=== PATIENT | male | born 2000 | race Hispanic/Latino ===

== ENCOUNTER 2022-07-04 08:27 | Emergency (ER) | payer SELFPAY ==
[2022-07-04 08:45] VITALS: BP 122/69; PULSE 85; RESP 16; TEMP 36.7; O2SAT 98; BMI 31.5
--- NOTE | 2022-07-04 09:22 | ED.SKABFB ---
HPI - Skin/Abscess/Foreign Bdy General Chief complaint: Skin/Abscess/Foreign Body Stated complaint: face & LT leg hurting Time Seen by Provider: 07/04/22 09:20 Source: patient and family (mom) Mode of arrival: Ambulatory Limitations: no limitations History of Present Illness HPI narrative: This is a 21-year-old male with history of autism no other known medical issues. Patient has 2 complaints today 1 is a rash on his face just been there for about a month mom states that he was receiving an antifungal it was kind helpful and then got worse again she states he scratches and picks at it a lot. Patient describes it as itchy mildly painful. It has not been resolving. They have not put any antifungal on for the past 4 days. No fevers or chills no swelling of the face sort of patchy cross the hair but also under the chin. Has not been spreading to other body parts. Patient has not had similar issues in the past. Patient also has complaint of right leg pain. Patient does not recall a specific incident that caused pain but he has had pain that radiates from the hip down towards the knee for about a month. It is worse when he gets to sit up from a chair he has pain and sort of feel like it locks when he gets up. Patient's sort of stands on comfortably slightly bent over and then is able start to move better. Mom notes that he tends to hold the right foot sort of out turned which is new. 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 They have tried Advil without any improvement. No warmth, erythema no other skin changes. Patient has not appreciated any swelling. He does not recall any specific traumatic injuries but movement does make it worse. He states it does not radiate farther down. He denies numbness or tingling. No bowel or bladder incontinence. He denies any back pain. Has not had similar in the past. No other daily prescriptions, no prior surgeries. No known drug allergies noted. Patient is visiting for several months but does not actively live in the state he is currently living in [place]. Related Data Previous Rx's Medication Instructions Recorded mupirocin 2 % topical ointment 1 applic topical BID 2 weeks #22 07/04/22 grams Review of Systems Review of Systems ROS Unobtainable: All systems reviewed & are unremarkable except as noted in HPI and below Exam Narrative Exam Narrative: GEN: well nourished, well appearing male, alert and oriented x 3, patient appears to be in mild distress. HEENT: Atraumatic, pupils are equal round reactive to light, extraocular movements are intact, nares are clear, there is no conjunctival pallor. Throat is clear without any exudates, erythema, tonsillar enlargement or uvular deviation, patient has patchy honey-colored crusted lesions on his cheeks particularly on the right underneath the chin and tracking to the left the majority in his facial hair on his ladd. Patient does not have any warmth or erythema, no drainage, no swelling of the face. No oropharyngeal involvement. Thrush not appreciated elsewhere. HEART: Regular rate and rhythm without murmur, clicks, rubs. pulses are equal in bilateral lower extremities LUNGS:Lungs clear to auscultation, no wheezes, rales, crackles, chest moves symmetrically ABD:bowel sounds normal, soft, non-tender, no guarding, rebound, rigidity, no masses noted, no hepatosplenomegaly :No CVA tenderness BACK: No cervical, thoracic or lumbar vertebral point tenderness. Patient has normal range of motion. MSCL: Non-tender, no muscle atrophy, muscles strength 5/5 upper and lower extremities, full range of motion, patient walks with a slightly out turned left lower extremity when he moves from a seated position to standing he is slightly bent over and then continue walk with out-turned leg. Patient has full range of motion of the hip, knee and ankle and foot. 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 He is normal internal external rotation. No swelling of the extremity. 5/5 muscle strength. 2+ pulses. Normal sensation throughout. NEURO:CN 2-12 intact, sensation normal SKIN: Please note skin changes above on the face patient does not have any rash or skin changes on his lower extremity. Initial Vital Signs Initial Vital Signs: Vital Signs Temperature 98.1 F 07/04/22 08:45 Pulse Rate 85 07/04/22 08:45 Respiratory Rate 16 07/04/22 08:45 Blood Pressure 122/69 07/04/22 08:45 Pulse Oximetry 98 07/04/22 08:45 Oxygen Delivery Method Room Air 07/04/22 08:45 Course Orders Ordered: ED Orders 07/04/22 09:51 XR lumbar spine 2-3V Stat 05/12/23 09:52 XR hip w pel if done LT 2V Stat Vital Signs Vital signs: Vital Signs - 8 hr 07/04/22 08:45 Temperature 98.1 F Pulse Rate 85 Respiratory Rate 16 Blood Pressure 122/69 Pulse Oximetry 98 Oxygen Delivery Method Room Air MDM - Skin/Abscess/Foreign Bdy MDM Narrative Medical decision making narrative: This is a 21-year-old male with what appears to be impetigo on his face he is had an antifungal she is not been very helpful. He is honey-crusted lesions plan for mupirocin over the next 2 weeks to see if this resolves his symptoms. Patient mom and patient notes he is had left leg discomfort for several months no traumatic injury is recalled but particularly when patient sits up and stands he is painful and uncomfortable and is sort of hunched and with ambulation his left leg turns outwards. On examination while lying flat he has full range of motion he has normal movement with no changes to internal external rotation he has no bony tenderness. Denies any back pain and has no tenderness on examination. Skin is normal no swelling or other changes appreciated. Plan for x-ray of hip as well as lower lumbar spine to evaluate for any clear changes if these are negative follow-up with orthopedic surgery. Discharge Plan Departure Patient Disposition: Home Clinical Impression: Impetigo, Left leg pain Instructions: DI for Impetigo, DI for Leg Pain Activity Restrictions/Additional Instructions: Use topical antibiotic twice daily to the affected areas on your face for 2 weeks. Wash the area twice daily and pat dry. Any washcloth or fabrics that are touching the skin regularly wash them and do not reuse them. Prescription sent to [facility] in [place]. If symptoms are continuing to persist despite treatment follow-up for recheck. I would recommend follow up with Orthopedic surgery for your lower extremity pain this could be secondary to hip versus back issues. You can take Tylenol and/or ibuprofen as needed for pain. You can continue with gentle stretching and [id number] but I would recommend follow-up with a primary care orthopedic surgeon for further evaluation and possibly PT. Prescriptions: New mupirocin 2 % ointment 1 applic topical BID 14 Days Qty: 22 0RF Referrals: Reina Doshi MD [Physician] - Miscellaneous,DoctorMD [Primary Care Provider] - Santhosh Godinez MD [Physician] - Stand Alone Forms: Patient Portal/API
--- NOTE | 2022-07-04 09:51 | DI.RAD.S_ITS ---
PROCEDURE: XR LUMBAR SPINE 2-3V INDICATIONS: hip/leg pain for several months TECHNIQUE: 3 views of the lumbar spine were acquired. COMPARISON: None. FINDINGS: Bones: 5 [id number] vertebrae are present. There is straightening of lumbar lordosis which may be due to patient positioning and/or concurrent muscle spasms. No acute compression fracture mild lumbar spondylosis of the lower lumbar spine most prominent at L5-S1. No suspicious bony lesions. Soft tissues: Overlying bowel gas pattern is normal. No suspicious soft tissue calcifications. IMPRESSION: Lumbar spine without acute osseous abnormalities. Mild lower lumbar spondylosis. Mild straightening of normal lumbar lordosis likely related to positioning and/or concurrent muscle spasms. Dictated by: Nik Tavarez M.D. on 07/04/2022 at 10:47 Approved by: Nik Tavarez M.D. on 07/04/2022 at 10:48
--- NOTE | 2022-07-04 09:52 | DI.RAD.S_ITS ---
PROCEDURE: XR HIP W PEL IF DONE LT 2V INDICATIONS: left hip/leg pain for couple months leg outturned TECHNIQUE: AP pelvis with lateral view(s) of the left hip(s). COMPARISON: None. FINDINGS: Bones: No fractures or dislocations. Pelvic ring appears intact. No suspicious bony lesions. Soft tissues: The visualized bowel gas pattern is normal. No suspicious soft tissue calcifications. IMPRESSION: Left hip without acute osseous abnormalities. Normal alignment. No significant degenerative changes identified. If there are persistent symptoms or clinical suspicion for pathology, then repeat radiographs or advanced imaging (CT or MRI) may be considered for further evaluation. Dictated by: Nik Tavarez M.D. on 07/04/2022 at 10:50 Approved by: Nik Tavarez M.D. on 07/04/2022 at 10:50
--- NOTE | 2022-07-04 10:23 | PC.NURSE ---
pt taken to rm 3 after XR.
== END 2022-07-04 11:04 | disposition home or self-care (01) ==
PROVIDERS: Emergency Provider Emergency Medicine
DX: L01.00 Impetigo, unspecified (principal); M79.605 Pain in left leg
CPT/HCPCS: 72100; 73502; 99283